=== PATIENT | male | born 1930 | race Caucasian/White ===

== ENCOUNTER 2016-07-28 00:42 | Emergency (ER) | payer OTHER, MEDICARE ==
[~2016-07-28] VITALS: Ht 162.6 cm; Wt 77.6 kg
[2016-07-28 00:48] VITALS: BP 142/65
--- NOTE | 2016-07-28 00:52 | ED MVC/FALL/TRAUMA COMPLAINT ---
History of Present Illness General Chief Complaint: Fall Stated Complaint: BIBA, FALL Source: patient Exam Limitations: no limitations Vital Signs & Intake/Output Vital Signs & Intake/Output Vital Signs Date Time Temp Pulse Resp B/P B/P Pulse O2 O2 Flow FiO2 Mean Ox Delivery Rate 07/28 0056 97 Room Air 07/28 0048 96.6 71 20 142/65 97 Room Air Triage Nurses Notes Reviewed? yes Onset: Abrupt Duration: minute(s): Timing: single episode today Severity: mild Injuries/Fall Location: no injury Loss of Consciousness: no loss of consciousness Modifying Factors: Improves With: rest. Associated Symptoms: "I feel fine." HPI: 86 yo gentleman, h/o parkinson's from [facility] presents after a fall. Per the medics, "He was walking with his walker and fell backwards.... His TV was on top of him." He states that he landed on both his knees and on his left side. He notes that he feels well and has no pain. He did no hit his head. He did not lose consciousness. Past History Travel History Traveled to [place] past 21 day No Medical History Any Pertinent Medical History? see below for history Neurological: Parkinson's disease Surgical History Surgical History: none Family History Hx Contributory? No Review of Systems Review of Systems Constitutional: Reports: no symptoms. Eyes: Reports: no symptoms. Ears, Nose, Throat, Mouth: Reports: no symptoms. Respiratory: Reports: no symptoms. Cardiovascular: Reports: no symptoms. Gastrointestinal/Abdominal: Reports: no symptoms. Genitourinary: Reports: no symptoms. Musculoskeletal: Reports: no symptoms. Skin: Reports: no symptoms. Neurological/Psychological: Reports: no symptoms. All Other Systems: Reviewed and Negative Physical Exam Physical Exam General Appearance: well developed/nourished, no apparent distress Head: atraumatic, normal appearance Eyes: Bilateral: normal appearance. Ears, Nose, Throat, Mouth: hearing grossly normal Neck: normal inspection, supple, full range of motion Respiratory: normal breath sounds, chest non-tender, no respiratory distress, quiet respiration, lungs clear Cardiovascular: regular rate/rhythm Gastrointestinal: normal bowel sounds, soft, non-tender Back: normal inspection Extremities: normal range of motion Neurologic/Psych: no motor/sensory deficits, awake, alert, oriented x 3 Skin: intact, normal color, warm/dry Core Measures ACS in differential dx? No Severe Sepsis Present: No Septic Shock Present: No Progress Differential Diagnosis: back injury, chest wall injury Plan of Care: xrays... pt with no pain.... able to stand without problem. Diagnostic Imaging: Viewed by Me: Radiology Read. Discussed w/RAD: Radiology Read. Radiology Impression: ap pelvis, ls spine... no fx... full report below. CXR Impression: no acute abnormality, no infiltrates, normal size heart, normal mediastinum Comments: PATIENT: SHAY ESCALERA PRESENT AGE: 86 PATIENT ACCOUNT NO: [id number] : 32 LOCATION: [facility] ORDERING PHYSICIAN: SHIN GOMEZ MD SERVICE DATE: 07/28/16 EXAM TYPE: RAD - XRY-AP PELVIS; XRY-CHEST XRAY, PA AND LATERAL; XRY-LUMBOSACRAL SPINE AP & LAT EXAMINATION: XR CHEST XR LUMBOSACRAL SPINE XR PELVIS CLINICAL INFORMATION: Fall, trauma COMPARISON: None TECHNIQUE: AP and lateral views of the chest. AP and lateral views of the lumbosacral spine. AP view of the pelvis. FINDINGS: Chest: Lung volumes are symmetric. No focal consolidation is seen. No evidence of pneumothorax, pleural effusion, or pulmonary edema. The cardiomediastinal contour is unremarkable. No acute osseous findings are seen. There is flowing ossification along the anterior longitudinal ligament, suspicious for diffuse idiopathic skeletal hyperostosis. Lumbosacral spine: Alignment appears anatomic. Vertebral body heights are maintained. 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 Intervertebral disc spaces are relatively well-preserved. Vacuum disc phenomenon is noted at L5-S1. Prominent osteophytes are present at L4-L5. There is facet arthropathy, most severe in the lower lumbar spine. Pelvis: Alignment across the hips appears anatomic, with mild degenerative changes. No acute fracture is seen. The sacroiliac joints are intact. IMPRESSION: 1. Chest: No acute findings identified. 2. Lumbar spine: No acute findings identified. Degenerative changes as described above. 3. Pelvis: No acute findings identified. DICTATED BY: CELESTINE RAMSAY MD DATE/TIME DICTATED:07/28/16144 MANAGER DOCUMENT:FRANCISCO DATE/TIME TRANSCRIBED:07/28/16144 CONFIDENTIAL, DO NOT COPY WITHOUT APPROPRIATE AUTHORIZATION. <Electronically signed in Other Vendor System> SIGNED BY: CELESTINE RAMSAY MD 07/28/16 0155 Departure Departure Disposition: HOME OR SELF CARE Condition: Stable Clinical Impression Primary Impression: Fall Secondary Impressions: Contusion Referrals: MAKAYLA BROOKE,JASS Paniagua (PCP/Family) Departure Forms: Customer Survey General Discharge Information Comments 07/28/16, 0:52... pt able to bear weight without problem.
--- NOTE | 2016-07-28 01:55 | RADIOLOGY REPORT ---
EXAMINATION: XR CHEST XR LUMBOSACRAL SPINE XR PELVIS CLINICAL INFORMATION: Fall, trauma COMPARISON: None TECHNIQUE: AP and lateral views of the chest. AP and lateral views of the lumbosacral spine. AP view of the pelvis. FINDINGS: Chest: Lung volumes are symmetric. No focal consolidation is seen. No evidence of pneumothorax, pleural effusion, or pulmonary edema. The cardiomediastinal contour is unremarkable. No acute osseous findings are seen. There is flowing ossification along the anterior longitudinal ligament, suspicious for diffuse idiopathic skeletal hyperostosis. Lumbosacral spine: Alignment appears anatomic. Vertebral body heights are maintained. 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 Intervertebral disc spaces are relatively well-preserved. Vacuum disc phenomenon is noted at L5-S1. Prominent osteophytes are present at L4-L5. There is facet arthropathy, most severe in the lower lumbar spine. Pelvis: Alignment across the hips appears anatomic, with mild degenerative changes. No acute fracture is seen. The sacroiliac joints are intact. IMPRESSION: 1. Chest: No acute findings identified. 2. Lumbar spine: No acute findings identified. Degenerative changes as described above. 3. Pelvis: No acute findings identified.
[2016-09-14] MEDS ORDERED: AZILECT1 M1 PO (08:12)
[2016-09-14] MEDS ORDERED: CARBIDOPA-LEVO1 EAC7 PO (08:13)
[2016-09-14] MEDS ORDERED: SENNA PLUS TAB1 EACH PO (08:14)
[2016-09-14] MEDS ORDERED: FLOMAX0.4 M1 PO (08:15)
[2016-09-14] MEDS ORDERED: ARICEPT10 M1 PO (08:15)
[2016-09-14] MEDS ORDERED: MELATONIN3 M4 PO (08:17)
[2016-09-14] MEDS ORDERED: AMLODIPINE BESYL5 M1 PO (08:18)
[2016-09-14] MEDS ORDERED: GABAPENTIN300 M2 PO (08:18)
[2016-09-14] MEDS ORDERED: MIRTAZAPINE15 M2 PO (08:19)
[2016-09-14] MEDS ORDERED: ESCITALOPRAM OX10 MG PO (08:20)
[2016-09-14] MEDS ORDERED: AMBIEN5 M1 PO (08:20)
[2016-09-14] MEDS ORDERED: PERCOCET 5-3251 EACH PO (08:22)
== END 2016-07-28 03:09 ==
LOC: ERH 00:42
DX: T14.8 Other injury of unspecified body region (principal); W19.XXXA Unspecified fall, initial encounter; Y93.01 Activity, walking, marching and hiking; Y92.9 Unspecified place or not applicable
CPT/HCPCS: 72100; 72170